=== PATIENT | female | born 1995 | race American Indian/Alaskan Native ===

== ENCOUNTER 2021-05-06 09:33 | Outpatient (CLI) | payer MEDICAID ==
[2021-05-06 11:38] LABS: Bilirubin,Urine NEG (Negative); Blood,Urine NEG (Negative); Color,Urine Yellow (Yellow); Protein,Urine <15 mg/dL mg/dL (Negative); Urobilinogen,Urine < 2.0 mg/dL (<2.0); WBC,Urine < 1.0 /HPF (0.0-6.0)
[2021-05-06 11:39] LABS: Alanine Aminotransferase 7 units/L (7-56); Hematocrit 28.5 % (30.3-42.9); Mean Corpuscular HGB Conc 32 % (30-34); Mean Corpuscular Volume 74 fl (79-97); Platelet Count 301 K/mm3 (140-440); Red Blood Count 3.88 M/mm3 (3.65-5.03); Red Cell Distribution Width 18.6 % (13.2-15.2); Uric Acid 3.3 mg/dL (3.5-7.6)
[2021-05-06 11:46] LABS: RBC,Urine > 182.0 /HPF (0.0-6.0)
[2021-05-06] MEDS ORDERED: LIDOCAINE-MPF (1%) 10 MG/1 ML VIAL 5 ML INFILTRATI ONE ×2 (12:20→14:00)
[2021-05-06] MEDS ORDERED: BUTALB/ACETAMINOPHEN/CAFFEINE TAB PO PRN (13:00)
--- NOTE | 2021-05-06 13:11 | Ultrasound Report ---
Biophysical profile Ultrasound HISTORY: DECREASED MOVEMENT - BPP. TECHNIQUE: Grayscale and color imaging performed. COMPARISON: None FINDINGS: Fetus received a score of 2 out of 2 for breathing, movement, posture/tone, and MICHAELA. Total score was 8 out of 8. Heart rate during the exam was 166 bpm. IMPRESSION: Normal BPP. Signer Name: Tadeo Linder MD Signed: 05/06/2021 1:07 PM Workstation Name: [id number]
[2021-05-06 13:40] VITALS: BP 110/67
== END 2021-05-06 14:27 | disposition home or self-care (01) ==
LOC: TRG 09:33 → APU 09:34 → TRG 14:27
PROVIDERS: ATTEND Obstetrics & Gynecology
DX: Z34.93 Encounter for supervision of normal pregnancy, unspecified, third trimester (principal); Z3A.39 39 weeks gestation of pregnancy
CPT/HCPCS: 36415; 59025; 76819; 81001; 82565; 83615; 84450; 84460; 84550; 85027; J0696